=== PATIENT | male | born 1940 | race Caucasian/White ===

== ENCOUNTER → 2017-01-03 | Outpatient (CLI) | payer MEDICARE, OTHER ==
[~2017-01-03] MED LIST: AMOXICILLIN500 MG PO; BACITRACIN28.4 GM NS; BACTRIM,SEPT1 TABLET PO; COUMADIN,JANTOVE1 MG PO; Colace PO; Coumadin,Jantoven PO; ENDOCET 5-3251 EACH PO; Feosol PO; KEFLEX500 MG PO; NAPROXEN500 MG PO; NOHOMEMEDS; OMEGA 3-6-91200 MG PO; Percocet 5/325,Endoc PO; Senokot S,Pericolace PO; [UNRECOGNIZED DRUG - OTHER] PO
== END | disposition home or self-care (01) ==
LOC: CDC 15:10
DX: Z01.810 Encounter for preprocedural cardiovascular examination (principal); G56.02 Carpal tunnel syndrome, left upper limb; G56.22 Lesion of ulnar nerve, left upper limb
CPT/HCPCS: 93000